=== PATIENT | female | born 1990 | race Caucasian/White ===

== ENCOUNTER 2025-05-26 19:24 | Emergency (ER) | payer MEDICAID ==
[~2025-05-26] VITALS: Ht 170.2 cm; Wt 75.0 kg
[2025-05-26 19:58] VITALS: BP 124/75; PULSE 77; RESP 15; O2SAT 100
--- NOTE | 2025-05-26 23:18 | Physician Documentation ---
History of Present Illness ~ Chief Complaint: Foreign body Stated Complaint: FOREIGN BODY IN NOSE Time Seen by MD: 23:05 HPI Is a very pleasant 35-year-old female that presents to the emergency room for evaluation of a lodged foreign body in her right [place]. Patient reports she was attempting to put in a new nasal piercing when she accidentally inhaled the ring lodging it in her nares beyond the visual field. Patient reports that she put has otoscope in her right [place] in order to visualize that she is able to see it but was unable to retrieve the nose ring. Patient denies any symptoms at this time there is no bleeding at the site. Patient reports mild discomfort but no pain. Patient has tried to blow her nose to remove the nasal ring from her near without success. No other symptoms reported at this time. Medication Reconciliation Allergies: Coded Allergies: No Known Allergies (Unverified , 05/26/25) Past Medical History Last Menstrual Period: May 22, 2025 Review of Systems ROS As stated above in the HPI, otherwise all systems are reviewed and negative. Physical Exam Vital Signs: Temperature: 97.6, Source: Temporal, Heart Rate: 77, Respiratory Rate: 15, BP: 124/75, Pulse Oximetry: 100, Weight: 75.000 Physical Exam VITALS: Reviewed and as above. GENERAL: Alert, no apparent distress. HEENT: Normocephalic, atraumatic, PERRL, EOMI, dry mucosa, no erythema, able to visualize foreign body in right [place] patient reports that she can feel it but beyond the visual field during examination. RESPIRATORY: Lungs clear, normal breath sounds, no respiratory distress. CHEST: No accessory muscle use, no retractions CV: Regular rate, rhythm, no edema, no murmur, No: JVD GI: Soft, non-tender, bowels sounds present, no rebound, guarding, or rigidity BACK: No CVA tenderness, or swelling MUSCULOSKELETAL No deformities, no edema SKIN: Warm and dry, no rash NEURO: Oriented x4, No motor or sensory deficit PSYCH: Normal mood and affect, no agitation Progress Results/Orders Results/Orders Vital Signs 05/26/25 19:58 Temp 97.6 Pulse 77 Resp 15 B/P (MAP) 124/75 Pulse Ox 100 Medical Decision Making Additional information obtaine: other Findings Chief Complaint: Nasal foreign body (nose ring) lodged in right nostril History of Present Illness: 35-year-old female presented to the emergency department with a nasal foreign body. Patient was attempting to insert a new nasal piercing when she accidentally inhaled the ring, lodging it in the right nares beyond the visual field on anterior rhinoscopy. Patient attempted self- removal at home using an otoscope for visualization but was unable to retrieve the object. Patient also attempted to blow her nose without success. Currently denies pain, reporting only mild discomfort. No epistaxis, no respiratory distress, no other symptoms. Medical Decision-Making: Number of Diagnoses/Management Options: Moderate complexity Nasal foreign body (nose ring), right nostril Failed home removal attempt Consideration of removal techniques and potential complications Amount and Complexity of Data: Moderate complexity Clinical examination with anterior rhinoscopy Assessment of foreign body location and accessibility Consideration of imaging: Radiologic evaluation was not pursued as it is generally not necessary when the foreign body type is known and the patient is cooperative, particularly for non-metallic objects that do not pose immediate risk such as button batteries. Risk of Complications: Moderate risk Risk assessment: Nasal foreign bodies can be safely removed in the emergency department in most cases using positive pressure techniques or instrumentation when the object is visible. However, failed home removal attempts and inability to visualize the object on anterior rhinoscopy increase procedural complexity. Complication considerations: Epistaxis is the most common complication during nasal foreign body removal, occurring in up to 30% of cases. Risk of complications increases with prolonged retention beyond 24 hours and with repeated removal attempts. Other potential complications include mucosal trauma, posterior dislodgement with aspiration risk, and delayed diagnosis leading to infection or septal perforation. Equipment selection: Evidence suggests that suction, cotton swabs, and modified paper clips are associated with lower rates of epistaxis compared to forceps. Multiple techniques and instruments were considered for safe removal. Procedure and Outcome: Nasal foreign body successfully removed using [specific technique/instrument used] without complications. No epistaxis noted during or after removal. Post-procedure examination revealed intact nasal mucosa without significant trauma. Disposition: Patient discharged home in stable condition with normal vital signs and no active bleeding. Discharge Instructions: Monitor for delayed epistaxis, purulent discharge, or foul odor Return to emergency department if bleeding occurs, difficulty breathing develops, or signs of infection appear Avoid nasal manipulation for 48 hours to allow mucosal healing May use saline nasal spray for comfort if needed Follow-up: Routine follow-up with primary care provider as needed. No otolaryngology referral required given successful removal without complications. Overall Medical Decision-Making Complexity: Moderate Ear Diff. Dx: Considerations: Include: Abrasion, Cerumen impaction, Foreign body, Otitis externa, Barotrauma, Otitis media, Perforation, Referred pain- dental, Referred pain-pharyngitis, Referred pain-sinusitis, Referred pain-TMJ syn., Tympanic Membrane Injury, Other Eye Diff. Dx: Considerations: Include: Chalazoin, Conjuctivits-allergic, Conjuctivitis-bacterial, Conjuctivits-chlamydial, Conjuctivitis-viral, Corneal abrasion, Corneal laceration, Corneal ulceration, Foreign body-conjuctiva, Foreign body-corneal, Foreign body-intraocular, Foreign body-lid, Glaucoma, Globe rupture, Hordeolum, Iritis, Orbital cellulitis, Periobital cellulitis, Retinal artery occulsion, Retinal vein occlusion, Rust ring, Subconjunctival hem, Ultraviolet keratitis, Uveitis, Vitreous hemorrhage, Other Nose Diff. Dx: Considerations: Include: Abrasion, Anterior nasal bleed, Avulsion, Contusion, Coagulopathy, Fracture-nasal bone, Fracture-septum, Hypertension, Laceration, Other, Posterior nasal bleed, Retained foreign body, Septal hematoma Tooth Diff. Dx: Considerations: Include: Alveolar fracture, Aveolar osteitis, ANUG, Facial cellulitis, Periapical abscess, Periodontal abscess, Post- extraction bleeding, Pulpitis, Trigeminal neuralgia, Tooth-avulsion, Tooth- eruption, Tooth-fracture, Tooth-subluxation, Other Throat Diff Dx: Considerations: Include: AIDS, Epiglottitis, Esophageal candidiasis, Hand foot mouth disease, Herpangina, Herpetic stomatitis, Herpes simplex, Infection mononucleosis, Immunodeficiency, Be's angina, Peritonsillar abscess, Peritonsillar cellulitis, Pharyngitis-diphtheria, Pharyngitis-strepococcal, Pharyngitis-viral, Thrush, URI, Other Departure Disposition: 01 HOME / SELF CARE / HOMELESS Impression: Primary Impression: Foreign body Condition: Stable Discharge Instructions: Foreign Body Additional Instructions: What happened today: You came to the emergency department because a nose ring became lodged in your right nostril. The medical team successfully removed the nose ring from your nose. Your nasal passages were examined after removal and look healthy with no significant injury. What to expect at home: You may have mild discomfort or tenderness in your nose for the next 1-2 days. This is normal. You may notice small amounts of clear or slightly bloody drainage from your nose for the first 24 hours. This is normal. Your nose may feel stuffy or congested for a few days as the lining heals. Important care instructions: Do NOT: Put anything in your nose (including fingers, tissues, or cotton swabs) for the next 48 hours Blow your nose forcefully for the next 48 hours Insert any nasal jewelry or piercings for at least 1-2 weeks to allow complete healing You MAY: Use saline (salt water) nasal spray if your nose feels dry or uncomfortable Take rxdr-abl-vwditln pain medication like acetaminophen (Tylenol) or ibuprofen (Advil, Motrin) if needed for discomfort Gently dab the outside of your nose with a tissue if you have drainage When to return to the emergency department immediately: Seek medical care right away if you experience any of the following: Bleeding from your nose that doesn't stop after 10-15 minutes of gentle pressure Difficulty breathing through your nose that gets worse Foul-smelling drainage or pus coming from your nose Fever (temperature over 100.4F or 38C) Severe pain in your nose or face Swelling of your nose or face Any feeling that something is still stuck in your nose These symptoms could indicate bleeding, infection, or a retained piece of the foreign body that needs immediate attention. Follow-up care: You do not need a scheduled follow-up appointment unless you develop any of the warning signs listed above. If you have any concerns or questions, contact your primary care doctor. If you plan to get your nose pierced again in the future, consider having it done by a professional restaurant crew person to reduce the risk of complications. Why these instructions matter: The inside of your nose has a delicate lining that can bleed easily, especially in the first 24-48 hours after a foreign body is removed. Avoiding nose manipulation gives this lining time to heal properly. While serious complications are rare when foreign bodies are removed promptly, infection can develop if bacteria enter the injured tissue. Please follow up with the ENT clinic at [phone] Referrals: NO PRIMARY CARE PROVIDER (PCP) Prescriptions Amox Tr/Potassium Clavulanate (Augmentin 875-125 Tablet) 1 Each Tablet 1 TAB PO Q12H for 10 Days, #20 TAB Prov: SAMEER TORRES 05/26/25 Education Educated: Patient Educated regarding: diagnosis, treatment, need for follow up Signature Scribe Signature: A Attestation: Scribed for Sameer Torres by SHAY Herron . 05/26/25 23:25 SAMEER TORRES May 26, 2025 23:18
[2025-05-26] MEDS ORDERED: AMOX-117 PO (23:24)
[2025-05-26 23:28] VITALS: TEMP 97.6
== END 2025-05-26 23:38 | disposition home or self-care (01) ==
LOC: ER 19:25
DX: T17.1XXA Foreign body in nostril, initial encounter (principal); W44.9XXA Unspecified foreign body entering into or through a natural orifice, initial encounter; Y93.89 Activity, other specified; Y92.89 Other specified places as the place of occurrence of the external cause; Y99.8 Other external cause status
CPT/HCPCS: 30300; 99284